=== PATIENT | female | born 1990 | race Caucasian/White ===

== ENCOUNTER 2018-01-27 05:49 | Inpatient (IN) | payer BC ==
[2018-01-27] MEDS: LACTATED RINGER'S 1000 ML IV (06:30)
[2018-01-27 06:41] LABS: HEMATOCRIT 35.5 % (36.0-47.0); HEMOGLOBIN 12.2 g/dl (12.0-15.5); MEAN CORPUSCULAR HEMOGLOBIN 32.1 pg (27.0-33.0); MEAN CORPUSCULAR HGB CONC 34.4 g/dl (32.0-36.5); MEAN CORPUSCULAR VOLUME 93.4 fl (80.0-96.0); PLATELET COUNT, AUTOMATED 229 10^3/uL (150-450); RED CELL DISTRIBUTION WIDTH 12.6 % (11.5-14.5); WHITE BLOOD COUNT 7.2 10^3/uL (4.0-10.0)
[2018-01-27 06:58] LABS: ANION GAP 9 MEQ/L (8-16); BLOOD UREA NITROGEN 9 MG/DL (7-18); CALCIUM LEVEL 8.4 MG/DL (8.5-10.1); CARBON DIOXIDE LEVEL 24 MEQ/L (21-32); CHLORIDE LEVEL 109 MEQ/L (98-107); CREATININE FOR GFR 0.56 MG/DL (0.55-1.30); GLOMERULAR FILTRATION RATE > 60.0 (>60); GLUCOSE, FASTING 79 MG/DL (70-100); POTASSIUM SERUM 4.3 MEQ/L (3.5-5.1); SODIUM LEVEL 142 MEQ/L (136-145)
[2018-01-27] MEDS: BETAMETHASONE SOLUSPAN 6MG/ML INJ 5ML (J0702) IM (07:28)
[2018-01-27] MEDS: AMPICILLIN SOD 1 GM in D5W 50 ML IV ×2 (07:31→11:35)
[2018-01-27 08:26] LABS: AMPHETAMINES URINE REFLEX NEGATIVE (NEGATIVE); BARBITURATES URINE REFLEX NEGATIVE (NEGATIVE); BENZODIAZEPINES URINE REFLEX NEGATIVE (NEGATIVE); CANNABINOIDS URINE REFLEX NEGATIVE (NEGATIVE); COCAINE METABOLITE URINE REFLE NEGATIVE (NEGATIVE); METHADONE URINE REFLEX NEGATIVE (NEGATIVE); OPIATES URINE REFLEX NEGATIVE (NEGATIVE); PHENCYCLIDINE URINE REFLEX NEGATIVE (NEGATIVE)
[2018-01-27] MEDS ORDERED: NIFEdipine 10 MG CAP PO (09:00)
[2018-01-27] MEDS: NIFEdipine 30 MG XL TAB PO (09:46)
[2018-01-27] MEDS ORDERED: FENTANYL 2MCG/ML ROPIVACAINE 0.2% IN 0.9% NACL 200ML IVBAG As Ordered (10:31)
[2018-01-27] MEDS ORDERED: ePHEDrine SULFATE 25 MG/5 ML(5MG/ML) SYRINGE As Ordered (11:31)
[2018-01-27] MEDS ORDERED: diphenhydrAMINE INJ 50MG/ML VIAL (J1200) IV (11:45)
[2018-01-27] MEDS ORDERED: EPIDURAL/PCA KEYS XX (11:45)
[2018-01-27] MEDS ORDERED: ONDANSETRON 4MG/2ML VIAL (J2405) IV (11:45)
[2018-01-27] MEDS ORDERED: REFRIGERATOR IV KEYS XX (11:45)
[2018-01-27] MEDS ORDERED: ePHEDrine SULFATE 25 MG/5 ML(5MG/ML) SYRINGE IV (11:45)
[2018-01-27] MEDS ORDERED: NALOXONE INJ 0.4 MG/1 ML VIAL (J2310) IV (11:45)
[2018-01-27] MEDS ORDERED: EPIDURAL COMMENT XX (11:45)
[2018-01-27] MEDS ORDERED: LACTATED RINGER'S 1000 ML IV (11:45)
[2018-01-27] MEDS ORDERED: FENTANYL/ROPIVACAINE/NACL BAG 200 ML EPIDURAL (11:45)
[2018-01-27] MEDS ORDERED: OXYTOCIN 30 UNITS IN 0.9% NaCl 500ML IV BAG (J2590) As Ordered (13:16)
[2018-01-27 15:17] LABS: CORD GAS ABE V -10.6; CORD GAS HCO3 V 18.6 MEQ/L; CORD GAS O2 SAT V 41.8 %; CORD GAS PCO2 V 54.8 mmHg; CORD GAS PH V 7.149 UNITS; CORD GAS SBC V 15.1 MEQ/L; CORD GAS TCO2 V 20.3 MEQ/L
[2018-01-27 15:18] LABS: CORD GAS ABE A -11.2; CORD GAS HCO3 A 18.9 MEQ/L; CORD GAS O2 SAT A 44.6 %; CORD GAS PCO2 A 59.9 mmHg; CORD GAS PH A 7.116 UNITS; CORD GAS PO2 A 24.5 mmHg; CORD GAS SBC A 14.8 MEQ/L; CORD GAS TCO2 A 20.7 MEQ/L
[2018-01-27] MEDS ORDERED: OXYTOCIN DRIP 30 UNITS in APPROPRIATE DILUENT 1 EA IV (15:19)
[2018-01-27] MEDS ORDERED: METHYLERGONOVINE MALEATE 0.2 MG TAB PO (15:30)
[2018-01-27] MEDS ORDERED: DIBUCAINE 1% OINTMENT 30GM TOP (15:30)
[2018-01-27] MEDS ORDERED: RHOGAM 300 MCG (1500 IU) INJ (J2790) IM (15:30)
[2018-01-27] MEDS ORDERED: MEASLES,MUMPS,RUBELLA VACCINE INJ (MMR-II) (90707) SC (15:30)
[2018-01-27] MEDS: IBUPROFEN 800 MG TAB PO (17:32)
[2018-01-27] MEDS: ACETAMINOPHEN 500 MG TAB PO (23:02)
[2018-01-28] MEDS: IBUPROFEN 800 MG TAB PO ×3 (04:29→22:29)
[2018-01-28] MEDS: PRENATAL VITAMINS CHEWABLE TABLET PO (08:05)
[2018-01-28] MEDS: ACETAMINOPHEN 500 MG TAB PO ×3 (08:06→20:10)
[2018-01-28] MEDS: DOCUSATE SODIUM 100 MG CAP PO (22:30)
[2018-01-29] MEDS: IBUPROFEN 800 MG TAB PO (08:08)
[2018-01-29] MEDS: PRENATAL VITAMINS CHEWABLE TABLET PO (08:08)
[2018-01-29] MEDS: ACETAMINOPHEN 500 MG TAB PO (12:20)
== END 2018-01-29 12:30 | disposition home or self-care (01) | DRG 560 ==
LOC: M LDO 05:49 → M LDI 10:34 → M OBS 17:12
PROC: 10E0XZZ Delivery of Products of Conception, External Approach (ICD-10-PCS; principal; 2018-01-27)
DX: O45.93 Premature separation of placenta, unspecified, third trimester (principal); O60.14X0 Preterm labor third trimester with preterm delivery third trimester, not applicable or unspecified; O76 Abnormality in fetal heart rate and rhythm complicating labor and delivery; Z37.0 Single live birth; Z3A.35 35 weeks gestation of pregnancy; J45.909 Unspecified asthma, uncomplicated; Z79.899 Other long term (current) drug therapy; O99.52 Diseases of the respiratory system complicating childbirth

== ENCOUNTER → 2020-02-12 | Outpatient (CLI) | payer OTHER, BC ==
[~2020-02-12] MED LIST: MAPA500T2 PO; MOTR200T44 PO; PRENTAB9 PO
== END ==
LOC: M LAB 07:32
PROVIDERS: ATTEND Obstetrics & Gynecology Reproductive Endocrinology
DX: Z32.00 Encounter for pregnancy test, result unknown (principal)

== ENCOUNTER 2025-01-13 15:13 | Emergency (ER) | payer OTHER ==
[~2025-01-13] VITALS: Ht 175.3 cm; Wt 62.8 kg
[2025-01-13] MEDS: MORPHINE 2 MG/ML 1 ML VIAL IV PRN (16:27)
[2025-01-13] MEDS: PANTOPRAZOLE 40MG VIAL IV ONE (16:27)
[2025-01-13] MEDS: ONDANSETRON 4MG 2ML VIAL IV ONE (16:27)
[2025-01-13] MEDS: NS (Normal Saline) 0.9% 1,000 ML IV ONE (16:29)
[2025-01-13 16:32] LABS: BASO # 0.0 10^3/uL (0.0-0.2); BASO % 0.3 % (0.0-1.0); EOS # 0.1 10^3/uL (0.0-0.5); EOS % 0.9 % (0.0-3.0); LYMPH # 2.3 10^3/uL (1.5-5.0); LYMPH % 21.1 % (24.0-44.0); MONO # 0.5 10^3/uL (0.0-0.8); MONO % 4.6 % (2.0-8.0); NEUTROPHILS # 7.9 10^3/uL (1.5-8.5); NEUTROPHILS % 72.8 % (36.0-66.0); PLATELET COUNT, AUTOMATED 346 10^3/uL (150-450)
[2025-01-13] MEDS ORDERED: ISOVUE-370 76% 100 ML VIAL As Ordered ONE (16:45)
[2025-01-13 16:57] LABS: ALT/SGPT 15 U/L (7.0-40); AST/SGOT 17 U/L (<34); CALCIUM LEVEL 9.3 MG/DL (8.5-10.1); CARBON DIOXIDE LEVEL 27 MMOL/L (20-31); CHLORIDE LEVEL 100 MMOL/L (98-107); CREATININE FOR GFR 0.63 MG/DL (0.55-1.30); GLOMERULAR FILTRATION RATE > 90.0 (>60); POTASSIUM SERUM 4.1 MMOL/L (3.5-5.1); SODIUM LEVEL 137 MMOL/L (136-145)
[2025-01-13] MEDS: MORPHINE 4 MG/ML 1 ML VIAL IV PRN (18:26)
[2025-01-13] MEDS ORDERED: ENDO5TAB PO (19:56)
[2025-01-13 20:03] VITALS: BP 100/59; TEMP 98; O2SAT 100
[2025-01-13] MEDS: OXYCODONE/APAP 5MG/325MG(HOME DOSE PACK) PO ONE (20:13)
[2025-01-13] MEDS: KETOROLAC 30 MG/ML 1 ML VIAL IV ONE (20:14)
== END 2025-01-13 20:28 | disposition home or self-care (01) ==
LOC: M ED 15:13
DX: N83.202 Unspecified ovarian cyst, left side (principal); Z79.1 Long term (current) use of non-steroidal anti-inflammatories (NSAID); Z79.899 Other long term (current) drug therapy
CPT/HCPCS: 74177; 76856; 80047; 80048; 80076; 83605; 83690; 84702; 85025; 93005; 93976; 96361; 96374; 96375; 96376; 99284; J1885; J2405; J2470; Q9967